=== PATIENT | female | born 1985 ===

== ENCOUNTER 2017-02-11 10:07 | Emergency (ER) | payer MEDICAID, MEDICARE ==
[2017-02-11 10:07] VITALS: BMI 18.6
[2017-02-11 10:19] VITALS: RESP 18
--- NOTE | 2017-02-11 12:02 | C.PDOC ---
History Of Present Illness 31-year-old female, presents to the emergency department with complaints of tightness and pain under the left breast. Patient notes that pain began one month ago while she was working out, and feels it intermittently when she moves or bends. This morning, patient was doing crunches, and felt the pain again, resulting in her coming to the ED for evaluation. Notes a Hx of right leg surgery, three years ago and is concerned for DVT. Time Seen by Provider: 02/11/17 10:23 Chief Complaint (Nursing): Rib Injury History Per: Patient History/Exam Limitations: no limitations Onset/Duration Of Symptoms: Days Current Symptoms Are (Timing): Still Present Severity: Moderate Past Medical History Reviewed: Historical Data, Nursing Documentation, Vital Signs Vital Signs: Last Vital Signs Temp 98.4 F 02/11/17 12:29 Pulse 65 02/11/17 12:29 Resp 18 02/11/17 12:29 BP 110/71 02/11/17 12:29 Pulse Ox 99 02/11/17 13:42 - Medical History PMH: Anemia, Hypercholesterolemia (NORMAL NOW PER PT.) Denies: Chronic Kidney Disease Surgical History: Endoscopy - [facility] Procedures EXC LES SOFT TISSUE NEC (06/15/14) MANUAL ASSIST DELIV NEC (12/10/13) Family History: States: No Known Family Hx - Social History Hx Alcohol Use: No Hx Substance Use: No Review Of Systems Except As Marked, All Systems Reviewed And Found Negative. Constitutional: Negative for: Fever, Chills Cardiovascular: Positive for: Other (pain under left breast). Negative for: Chest Pain Respiratory: Positive for: Shortness of Breath Gastrointestinal: Negative for: Vomiting Skin: Negative for: Rash Neurological: Negative for: Weakness, Numbness, Headache, Dizziness Physical Exam - Physical Exam Appears: Non-toxic, No Acute Distress Skin: Warm, Dry, No Rash Head: Atraumatic, Normacephalic Eye(s): bilateral: Normal Inspection Nose: Normal Oral Mucosa: Moist Lips: Normal Appearing Neck: Normal ROM, Supple Chest: Other (left anterior chest wall tenderness) Cardiovascular: Rhythm Regular, No Murmur Respiratory: Normal Breath Sounds, No Accessory Muscle Use, No Rales, No Rhonchi , No Wheezing Gastrointestinal/Abdominal: Soft, No Tenderness Back: Normal Inspection, No CVA Tenderness Extremity: Normal ROM Neurological/Psych: Oriented x3, Normal Speech, Normal Motor ED Course And Treatment ECG: Interpreted By Me ECG Rhythm: Sinus Rhythm ECG Interpretation: Normal Interpretation Of ECG: normal axis, Rate From EC (bpm) O2 Sat by Pulse Oximetry: 99 (on RA) Pulse Ox Interpretation: Normal - Radiology CXR: Interpreted by Me CXR Interpretation: Yes: No Acute Disease. No: Infiltrates, Pnemothorax Medical Decision Making Medical Decision Making: D dimer is negative and no risk of DVT or PE. On re-exam, the patient reports the improvement of symptoms. Lungs are CTA, Lungs are CTA, Abdomen is soft, non- tender and patient is tolerating PO well. Patient is ambulatory in the ED with the steady gait. Follow up with the medical doctor within 1-2 days. Return if worsened. Disposition - Disposition Referrals: Dae Kothari MD [Staff Provider] - Disposition: HOME/ ROUTINE Disposition Time: 12:31 Condition: GOOD Additional Instructions: Follow up with the medical doctor within 1-2 days. Return if worsened. Prescriptions: Naproxen [Naprosyn] 500 mg PO BID #20 tab Instructions: Musculoskeletal Pain (ED) Forms: [employer] (Czech) - Clinical Impression Clinical Impression: Musculoskeletal chest pain - Scribe Statement The provider has reviewed the documentation as recorded by the Scribe (Mary Moses) All medical record entries made by the Scribe were at my direction and personally dictated by me. I have reviewed the chart and agree that the record accurately reflects my personal performance of the history, physical exam, medical decision making, and the department course for this patient. I have also personally directed, reviewed, and agree with the discharge instructions and disposition.
[2017-02-11 12:30] VITALS: BP 110/71; PULSE 65; TEMP 98.4
[2017-02-11 12:31] VITALS: O2SAT 99
--- NOTE | 2017-02-11 17:24 | RAD ---
PROCEDURE: Radiographs of the Chest and Left Ribs. HISTORY: left anterior rib pain, pleuritic pain COMPARISON: None available. TECHNIQUE: Frontal radiograph of the chest and multiple oblique radiographs of the left ribs were obtained. FINDINGS: LEFT RIBS: No fracture or focal lesion visualized. LUNGS: Clear. PLEURA: No pneumothorax or pleural fluid. CARDIOVASCULAR: Normal sized heart. No pulmonary vascular congestion. OTHER FINDINGS: None. IMPRESSION: Unremarkable radiographs of the chest and left ribs. No left rib fracture.
--- NOTE | 2017-02-12 12:25 | CARD ---
APPROVED REPORT EKG Measurement Heart [id number] NM [id number] <Conclusion> Normal sinus rhythm Normal ECG
== END 2017-02-11 12:39 | disposition home or self-care (01) ==
LOC: C.ER 10:07
DX: R07.89 Other chest pain (principal)
CPT/HCPCS: 71101; 85378; 93005; 96374; 99284; J1885